=== PATIENT | male | born 1980 | race Caucasian/White ===

== ENCOUNTER 2018-02-26 17:49 | Emergency (ER) | payer OTHER ==
[~2018-02-26] VITALS: Ht 172.7 cm; Wt 70.3 kg
== END 2018-02-26 22:18 | disposition home or self-care (01) ==
LOC: ER 17:49 → EDBD 18:39 → ER 22:18
DX: K52.9 Noninfective gastroenteritis and colitis, unspecified (principal)

== ENCOUNTER 2018-02-27 23:33 | Emergency (ER) | payer OTHER ==
[~2018-02-27] VITALS: Ht 172.7 cm; Wt 70.3 kg
== END 2018-02-28 10:16 | disposition home or self-care (01) ==
LOC: ER 23:33
DX: R10.31 Right lower quadrant pain (principal)

== ENCOUNTER 2018-03-08 11:04 | Outpatient (CLI) | payer OTHER ==
[2018-03-13] MEDS ORDERED: OMEPRAZOLE20 MG PO (10:21)
[2018-03-14] MEDS ORDERED: PROTONIX20 MG PO (15:04)
[2018-03-14] MEDS ORDERED: ULTRACET PO (15:04)
[2018-03-14] MEDS ORDERED: POLY119PG PO (15:04)
== END 2018-03-08 14:35 | disposition home or self-care (01) ==
LOC: MRI 11:04
DX: K80.20 Calculus of gallbladder without cholecystitis without obstruction (principal); R10.13 Epigastric pain; R74.0 Nonspecific elevation of levels of transaminase and lactic acid dehydrogenase [LDH]
CPT/HCPCS: 74181

== ENCOUNTER → 2018-03-14 | Day surgery (SDC) | payer OTHER ==
[~2018-03-14] MED LIST: OMEPRAZOLE20 MG PO; POLY119PG PO; PROTONIX20 MG PO; ULTRACET PO
== END | disposition home or self-care (01) ==
LOC: ADM 03-13 08:00 → CIR.AMB 06:34
DX: K80.10 Calculus of gallbladder with chronic cholecystitis without obstruction (principal)

== ENCOUNTER 2022-12-06 13:33 | Outpatient (CLI) | payer OTHER | END 2022-12-06 14:19 | disposition home or self-care (01) | LOC: LAB 13:33 | PROVIDERS: ATTEND Obstetrics & Gynecology | DX: Z20.818 Contact with and (suspected) exposure to other bacterial communicable diseases (principal); Z20.828 Contact with and (suspected) exposure to other viral communicable diseases ==